=== PATIENT | female | born 1960 | race Caucasian/White ===

== ENCOUNTER 2020-02-02 06:45 | Emergency (ER) | payer MEDICAID ==
[~2020-02-02] VITALS: Ht 162.6 cm; Wt 50.0 kg
[2020-02-02] MEDS ORDERED: TETanus/Pertussis (Acell)/Diphther VAC/PF (Tdap-Adult) 0.5ml syringe IMVAC ONE (06:50)
[2020-02-02] MEDS ORDERED: LIDOcaine 1% W/epiNEPHrine 1:200,000 10ml vial IJ ONE (06:50)
[2020-02-02 07:39] LABS: BASOPHILS % (AUTO) 1.2 % (0-1); EOSINOPHILS # (AUTO) 0.1 X10'3 (0-0.9); EOSINOPHILS % (AUTO) 2.1 % (0-6); HEMATOCRIT 45.5 % (35.0-45.0); HEMOGLOBIN 15.4 g/dl (12.0-16.0); LYMPHOCYTES # (AUTO) 1.7 X10'3 (1.1-4.8); LYMPHOCYTES % (AUTO) 43.3 % (21-51); MEAN CORPUSCULAR HEMOGLOBIN 33.9 PG (27.0-31.0); MEAN CORPUSCULAR HGB CONC 33.9 g/dL (33.0-36.5); MEAN CORPUSCULAR VOLUME 100.1 FL (78-98); MEAN PLATELET VOLUME 7.6 FL (7.4-10.4); MONOCYTES # (AUTO) 0.4 X10'3 (0-0.9); MONOCYTES % (AUTO) 10.9 % (2-12); NEUTROPHILS # (AUTO) 1.6 X10'3 (1.8-7.7); NEUTROPHILS % (AUTO) 42.5 % (42-75); PLATELET COUNT 150 X10'3 (140-440); RED BLOOD COUNT 4.54 X10'6 (4.20-5.60); RED CELL DISTRIBUTION WIDTH 14.5 % (11.5-14.5); WHITE BLOOD COUNT 3.9 X10'3 (4.5-11.0)
[2020-02-02 07:42] LABS: URINE HCG NEGATIVE (NEG)
[2020-02-02 07:51] LABS: CLARITY,URINE CLEAR (Clear); COLOR,URINE STRAW (Yellow); GLUCOSE, URINE NEGATIVE (Neg); KETONES,URINE NEGATIVE (Neg); LEUKOCYTE ESTERASE ,URINE NEGATIVE (Neg); NITRITES, URINE NEGATIVE (Neg); OCCULT BLOOD,URINE TRACE-LYSED (Neg); PROTEIN,URINE NEGATIVE (Neg); UROBILINOGEN,URINE 0.2 E.U/dL (0.2-1.0)
[2020-02-02 07:53] LABS: UA COLLECTION TYPE CLN CATCH MIDSTREAM
[2020-02-02 07:56] LABS: SQUAMOUS EPITHELIAL CELL,UR FEW /LPF (FEW)
[2020-02-02 07:57] LABS: BACTERIA,URINE FEW /HPF (Neg); RBC,URINE 0-2 /HPF (0-2); WBC,URINE 0-4 /HPF (0-4)
[2020-02-02 07:58] LABS: URINE AMPHETAMINE SCREEN NEGATIVE (Neg); URINE BARBITUATE SCREEN NEGATIVE (Neg); URINE BENZODIAZEPINES SCREEN NEGATIVE (Neg); URINE CANNABINOID SCREEN NEGATIVE (Neg); URINE COCAINE SCREEN NEGATIVE (Neg); URINE METHADONE SCREEN NEGATIVE (Neg); URINE OPIATE SCREEN NEGATIVE (Neg); URINE PHENCYCLIDINE SCREEN NEGATIVE (Neg)
[2020-02-02 08:04] LABS: ALANINE AMINOTRANSFERASE 250 U/L (12-78); ALBUMIN 4.5 G/DL (3.4-5.0); ALBUMIN/GLOBULIN RATIO 1.3 (1.1-1.5); ALKALINE PHOSPHATASE 142 IU/L (46-116); ANION GAP 13 (8-16); ASPARTATE AMINO TRANSFERASE 218 U/L (10-37); BILIRUBIN,TOTAL 0.8 MG/DL (0.1-1.0); BLOOD UREA NITROGEN 7 MG/DL (7-18); BUN/CREATININE RATIO 9.7 (6.6-38.0); CALCIUM 8.9 MG/DL (8.5-10.1); CHLORIDE 110 MMOL/L (99-107); CREATININE 0.72 MG/DL (0.40-0.90); GLUCOSE 95 MG/DL (70-104); POTASSIUM 3.9 MMOL/L (3.5-5.1); SODIUM 148 MMOL/L (135-145); TOTAL CARBON DIOXIDE 25.3 MMOL/L (24-32); TOTAL PROTEIN 8.1 G/DL (6.4-8.2); eGFR 83 ML/MIN
[2020-02-02] MEDS: LORazepam 1 MG tablet PO PRN ×3 (08:15→22:37)
[2020-02-02 08:32] LABS: ETHANOL 0.302 GM/DL (0.0-0.010)
[2020-02-02] MEDS ORDERED: diphenhydrAMINE 50 mg/ml inj IM ONE (08:40)
[2020-02-02] MEDS ORDERED: LORazepam 2 mg/ml vial IM ONE (08:40)
[2020-02-02] MEDS ORDERED: haloperidol lactate 5mg/ml inj IM ONE (08:40)
--- NOTE | 2020-02-02 10:15 | NUR ---
pt escorted from room 9 in main ED to room 20 by tech and security with no incidents, immediately laid down and went back to sleep
--- NOTE | 2020-02-02 11:00 | NUR ---
PT IS ASLEEP, REGULAR BREATHING PRESENT, NO AGITATION OBSERVED
--- NOTE | 2020-02-02 12:01 | NUR ---
PT IS SLEEPING, REGULAR BREATHING PRESENT. NO AGITATION OBSERVED
--- NOTE | 2020-02-02 13:11 | NUR ---
PATIENT IS SITTING UP IN BED, EATING AND DRINKING , NO AGITATION OBSERVED
--- NOTE | 2020-02-02 14:13 | NUR ---
PT IS ASLEEP, REGULAR BREATHING OBSERVED,
--- NOTE | 2020-02-02 15:12 | NUR ---
PT IS AWAKE AND COOPERATIVE WITH REGISTRATION STAFF
--- NOTE | 2020-02-02 16:08 | NUR ---
pt is asleep, laying on her right side, regular breathing present
--- NOTE | 2020-02-02 16:55 | NUR ---
pt is supine in bed, asleep, no s/s of agitation, regular breathing present
[2020-02-02] MEDS ORDERED: nicotine 21mg patch - 24 hr TD ONE (17:10)
--- NOTE | 2020-02-02 18:06 | NUR ---
pt is supine in bed asleep, regular breathing present, will continue to monitor
--- NOTE | 2020-02-02 19:17 | NUR ---
BREAKING PRIMARY RN. PT RESTING COMFORTABLY AND NOT SHOWING ANY SIGNS OF DISTRESS OR DISCOMFORT. WILL CONTINUE TO MONITOR.
[2020-02-02] MEDS ORDERED: TRAZ-251 PO (19:53)
--- NOTE | 2020-02-02 20:10 | NUR ---
pt is supine in bed, asleep, regular breathing present
[2020-02-02] MEDS ORDERED: traZODone 50mg tablet PO SCH (21:00)
--- NOTE | 2020-02-02 21:09 | NUR ---
pt is asleep, regular breathing present
--- NOTE | 2020-02-02 22:04 | NUR ---
BREAKING PRIMARY RN. PT SLEEPING WITH NO SIGNS OF DISTRESS OR DISCOMFORT. WILL CONTINUE TO MONITOR.
--- NOTE | 2020-02-02 22:53 | NUR ---
pt woke up and req sleep, meds, she was given meds and laid back down to sleep
--- NOTE | 2020-02-02 23:47 | NUR ---
TAKING OVER PT CARE FROM PRIOR RN; SBAR RECEIVED. PT CONTINUES TO REST WITH NO SIGNS OF DISTRESS OR DISCOMFORT. WILL CONTINUE TO MONITOR.
--- NOTE | 2020-02-03 00:38 | NUR ---
PT CONTINUES TO SLEEP, CURRENTLY ON RIGHT SIDE; NO SIGNS OF DISTRESS OR DISCOMFORT. WILL CONTINUE TO MONITOR.
--- NOTE | 2020-02-03 01:19 | NUR ---
PATIENT ON RIGHT SIDE RODRIGUEZ POSITION.WE WILL CONTINUE TO MONITOR.
--- NOTE | 2020-02-03 02:32 | NUR ---
PT CONTINUES TO REST WITH NO SIGNS OF DISTRESS OR DISCOMFORT. WILL CONTINUE TO MONITOR.
--- NOTE | 2020-02-03 03:46 | NUR ---
PT CONTINUES TO REST ON LEFT SIDE. NO SIGNS OF DISTRESS OR DISCOMFORT. WILL CONTINUE TO MONITOR.
--- NOTE | 2020-02-03 04:31 | NUR ---
PT CONTINUES TO REST WITH NO SIGNS OF DISCOMFORT OR DISTRESS. WILL CONTINUE TO MONITOR.
--- NOTE | 2020-02-03 05:50 | NUR ---
The patient appears to be sleeping
[2020-02-03] MEDS: LORazepam 1 MG tablet PO PRN (06:11)
--- NOTE | 2020-02-03 07:20 | NUR ---
asleep no resp dist
[2020-02-03] MEDS ORDERED: nicotine 21mg patch - 24 hr TD ONE (08:00)
--- NOTE | 2020-02-03 08:02 | NUR ---
asleep no resp dist
--- NOTE | 2020-02-03 09:30 | NUR ---
talking to county worker, in bed resting
[2020-02-03 09:49] VITALS: BP 116/83
--- NOTE | 2020-02-03 10:16 | NUR ---
asleep no resp dist
== END 2020-02-03 10:30 | disposition home or self-care (01) ==
LOC: ER 06:46
DX: S51.812A Laceration without foreign body of left forearm, initial encounter (principal); R45.851 Suicidal ideations; F32.9 Major depressive disorder, single episode, unspecified; X58.XXXA Exposure to other specified factors, initial encounter; Y93.89 Activity, other specified; Y92.89 Other specified places as the place of occurrence of the external cause; Y99.8 Other external cause status
CPT/HCPCS: 36415; 80053; 80305; 80320; 81001; 81025; 84443; 85025; 90471; 90715; 99285

== ENCOUNTER 2020-02-05 01:33 | Emergency (ER) | payer MEDICAID ==
[~2020-02-05] VITALS: Ht 162.6 cm; Wt 55.0 kg
[~2020-02-05 01:33] MED LIST: TRAZ-251 PO
[2020-02-05 01:34] VITALS: BP 102/65
== END 2020-02-05 02:32 | disposition left against medical advice (07) ==
LOC: ER 01:33
DX: S80.211A Abrasion, right knee, initial encounter (principal); F10.229 Alcohol dependence with intoxication, unspecified; F10.239 Alcohol dependence with withdrawal, unspecified; F32.9 Major depressive disorder, single episode, unspecified; Z60.2 Problems related to living alone; Z79.899 Other long term (current) drug therapy; Y90.9 Presence of alcohol in blood, level not specified; W18.39XA Other fall on same level, initial encounter; Y93.89 Activity, other specified; Y92.89 Other specified places as the place of occurrence of the external cause; Y99.8 Other external cause status
CPT/HCPCS: 82948; 99284

== ENCOUNTER 2020-02-05 02:49 | Emergency (ER) | payer MEDICAID ==
[~2020-02-05] VITALS: Ht 162.6 cm; Wt 55.0 kg
[2020-02-05 03:30] LABS: ANION GAP 13 (8-16); BLOOD UREA NITROGEN 12 MG/DL (7-18); BUN/CREATININE RATIO 14.5 (6.6-38.0); CHLORIDE 105 MMOL/L (99-107); CREATININE 0.83 MG/DL (0.40-0.90); GLUCOSE 102 MG/DL (70-104); SODIUM 142 MMOL/L (135-145); TOTAL CARBON DIOXIDE 24.5 MMOL/L (24-32); eGFR 71 ML/MIN
[2020-02-05 05:59] VITALS: BP 108/71
== END 2020-02-05 06:00 | disposition home or self-care (01) ==
LOC: ER 02:50
DX: F10.129 Alcohol abuse with intoxication, unspecified (principal); R41.0 Disorientation, unspecified; F32.9 Major depressive disorder, single episode, unspecified; Z60.2 Problems related to living alone; Z79.899 Other long term (current) drug therapy; Y90.0 Blood alcohol level of less than 20 mg/100 ml
CPT/HCPCS: 36415; 80048; 80320; 99283

== ENCOUNTER 2020-02-17 06:34 | Emergency (ER) | payer MEDICAID ==
[~2020-02-17] VITALS: Ht 162.6 cm; Wt 50.0 kg
[2020-02-17] MEDS ORDERED: normal saline 1000ML IV soln IVB ONE (06:50)
[2020-02-17 07:27] LABS: BASOPHILS % (AUTO) 0.9 % (0-1); EOSINOPHILS # (AUTO) 0.1 X10'3 (0-0.9); EOSINOPHILS % (AUTO) 2.5 % (0-6); HEMATOCRIT 43.5 % (35.0-45.0); HEMOGLOBIN 14.9 g/dl (12.0-16.0); LYMPHOCYTES # (AUTO) 1.5 X10'3 (1.1-4.8); LYMPHOCYTES % (AUTO) 39.7 % (21-51); MEAN CORPUSCULAR HEMOGLOBIN 34.1 PG (27.0-31.0); MEAN CORPUSCULAR HGB CONC 34.3 g/dL (33.0-36.5); MEAN CORPUSCULAR VOLUME 99.4 FL (78-98); MEAN PLATELET VOLUME 7.4 FL (7.4-10.4); MONOCYTES # (AUTO) 0.3 X10'3 (0-0.9); MONOCYTES % (AUTO) 7.1 % (2-12); NEUTROPHILS # (AUTO) 1.8 X10'3 (1.8-7.7); NEUTROPHILS % (AUTO) 49.8 % (42-75); PLATELET COUNT 221 X10'3 (140-440); RED BLOOD COUNT 4.38 X10'6 (4.20-5.60); WHITE BLOOD COUNT 3.7 X10'3 (4.5-11.0)
[2020-02-17 07:43] LABS: ALANINE AMINOTRANSFERASE 170 U/L (12-78); ALBUMIN/GLOBULIN RATIO 1.2 (1.1-1.5); ALKALINE PHOSPHATASE 135 IU/L (46-116); ANION GAP 13 (8-16); ASPARTATE AMINO TRANSFERASE 102 U/L (10-37); BILIRUBIN,TOTAL 0.4 MG/DL (0.1-1.0); BLOOD UREA NITROGEN 11 MG/DL (7-18); BUN/CREATININE RATIO 18.6 (6.6-38.0); CALCIUM 8.9 MG/DL (8.5-10.1); CHLORIDE 105 MMOL/L (99-107); CREATININE 0.59 MG/DL (0.40-0.90); ETHANOL 0.258 GM/DL (0.0-0.010); GLUCOSE 83 MG/DL (70-104); POTASSIUM 3.7 MMOL/L (3.5-5.1); SODIUM 143 MMOL/L (135-145); TOTAL CARBON DIOXIDE 24.8 MMOL/L (24-32); TOTAL PROTEIN 7.4 G/DL (6.4-8.2); eGFR > 90 ML/MIN
[2020-02-17] MEDS ORDERED: gabapentin 400mg capsule PO STA (08:06)
[2020-02-17 08:12] LABS: URINE AMPHETAMINE SCREEN NEGATIVE (Neg); URINE BARBITUATE SCREEN NEGATIVE (Neg); URINE BENZODIAZEPINES SCREEN NEGATIVE (Neg); URINE CANNABINOID SCREEN NEGATIVE (Neg); URINE COCAINE SCREEN NEGATIVE (Neg); URINE METHADONE SCREEN NEGATIVE (Neg); URINE OPIATE SCREEN NEGATIVE (Neg); URINE PHENCYCLIDINE SCREEN NEGATIVE (Neg)
[2020-02-17] MEDS ORDERED: CHLO25CA10 PO (08:13)
[2020-02-17] MEDS ORDERED: GABA-534 PO (08:13)
[2020-02-17] MEDS ORDERED: ONDA4TAB6 PO (08:16)
[2020-02-17 09:18] VITALS: BP 103/67
== END 2020-02-17 09:20 | disposition home or self-care (01) ==
LOC: ER 06:35
DX: F10.20 Alcohol dependence, uncomplicated (principal); K70.10 Alcoholic hepatitis without ascites; F32.9 Major depressive disorder, single episode, unspecified; F17.200 Nicotine dependence, unspecified, uncomplicated; R10.84 Generalized abdominal pain; Z79.899 Other long term (current) drug therapy; Z60.2 Problems related to living alone; Y90.0 Blood alcohol level of less than 20 mg/100 ml
CPT/HCPCS: 36415; 80053; 80305; 80320; 85025; 99283; J7030

== ENCOUNTER 2020-02-22 02:40 | Emergency (ER) | payer MEDICAID ==
[~2020-02-22] VITALS: Ht 162.6 cm; Wt 75.0 kg
[~2020-02-22 02:40] MED LIST changes: +CHLO25CA10 PO; +GABA-534 PO; +ONDA4TAB6 PO
--- NOTE | 2020-02-22 02:45 | NUR ---
PT STRIGHT CATH FOR URINE CHRISTELLE
--- NOTE | 2020-02-22 03:10 | NUR ---
PT CHANGED INTO GREEN SCRUBS
[2020-02-22] MEDS ORDERED: CHLO25CA10 PO (03:12)
[2020-02-22] MEDS ORDERED: ONDA-103 PO (03:14)
[2020-02-22 03:16] LABS: ALANINE AMINOTRANSFERASE 106 U/L (12-78); ALBUMIN 3.6 G/DL (3.4-5.0); ALBUMIN/GLOBULIN RATIO 1.1 (1.1-1.5); ALKALINE PHOSPHATASE 95 IU/L (46-116); ANION GAP 9 (8-16); ASPARTATE AMINO TRANSFERASE 62 U/L (10-37); BILIRUBIN,TOTAL 0.4 MG/DL (0.1-1.0); BLOOD UREA NITROGEN 7 MG/DL (7-18); CALCIUM 8.6 MG/DL (8.5-10.1); CHLORIDE 109 MMOL/L (99-107); CREATININE 0.88 MG/DL (0.40-0.90); GLUCOSE 76 MG/DL (70-104); POTASSIUM 3.8 MMOL/L (3.5-5.1); SODIUM 146 MMOL/L (135-145); TOTAL CARBON DIOXIDE 28.2 MMOL/L (24-32); TOTAL PROTEIN 6.8 G/DL (6.4-8.2); eGFR 66 ML/MIN
[2020-02-22] MEDS ORDERED: GABA-534 PO (03:16)
[2020-02-22 03:17] LABS: ETHANOL 0.143 GM/DL (0.0-0.010)
[2020-02-22 03:20] LABS: ACETAMINOPHEN < 2.0 UG/ML (10-30)
[2020-02-22 03:39] LABS: URINE AMPHETAMINE SCREEN NEGATIVE (Neg); URINE BARBITUATE SCREEN NEGATIVE (Neg); URINE BENZODIAZEPINES SCREEN POSITIVE (Neg); URINE CANNABINOID SCREEN NEGATIVE (Neg); URINE COCAINE SCREEN NEGATIVE (Neg); URINE METHADONE SCREEN NEGATIVE (Neg); URINE OPIATE SCREEN NEGATIVE (Neg); URINE PHENCYCLIDINE SCREEN NEGATIVE (Neg)
--- NOTE | 2020-02-22 03:39 | NUR ---
MED REC FAXED TO PHARMACY
[2020-02-22 03:50] LABS: BASOPHILS % (AUTO) 1.2 % (0-1); EOSINOPHILS # (AUTO) 0.1 X10'3 (0-0.9); EOSINOPHILS % (AUTO) 4.3 % (0-6); HEMATOCRIT 39.3 % (35.0-45.0); HEMOGLOBIN 13.3 g/dl (12.0-16.0); LYMPHOCYTES # (AUTO) 1.5 X10'3 (1.1-4.8); LYMPHOCYTES % (AUTO) 51.1 % (21-51); MEAN CORPUSCULAR HEMOGLOBIN 34.3 PG (27.0-31.0); MEAN CORPUSCULAR HGB CONC 33.9 g/dL (33.0-36.5); MEAN PLATELET VOLUME 7.6 FL (7.4-10.4); MONOCYTES # (AUTO) 0.3 X10'3 (0-0.9); MONOCYTES % (AUTO) 9.9 % (2-12); NEUTROPHILS % (AUTO) 33.5 % (42-75); PLATELET COUNT 164 X10'3 (140-440); RED BLOOD COUNT 3.89 X10'6 (4.20-5.60); RED CELL DISTRIBUTION WIDTH 14.5 % (11.5-14.5); WHITE BLOOD COUNT 2.9 X10'3 (4.5-11.0)
[2020-02-22] MEDS ORDERED: ondansetron 4mg rapidly disintigrating tab PO PRN (03:55)
--- NOTE | 2020-02-22 05:06 | NUR ---
PACKET FAXED TO [facility]
[2020-02-22 05:44] VITALS: BP 112/71
--- NOTE | 2020-02-22 06:22 | NUR ---
patient on a 1798. Patient drank and took meds. No sure if she overdosed (Chlordiazepoxide, gabapentin, trazodone. Patient sobered and states she took her regular meds and did not OD. Patient drank a a bottle and a half of wine. 0.14 ETOH level. Packet sent. Diet ordered. Med rec completed.
[2020-02-22 06:24] LABS: TOTAL CELLS COUNTED 100
[2020-02-22 06:25] LABS: PLATELET ESTIMATE NORMAL
--- NOTE | 2020-02-22 06:40 | NUR ---
PT BELONGINGS AND CHART TAKEN TO OVERFLOW. PT WALKED BACK TO BED 24 FROM BED 8
--- NOTE | 2020-02-22 06:42 | NUR ---
Patient resting on right side. No distress observed. Continue to monitor.
--- NOTE | 2020-02-22 08:10 | NUR ---
Patient sitting up and eating. No distress observed. Continue to monitor.
--- NOTE | 2020-02-22 10:02 | NUR ---
Patient being evaluated by [facility]. Continue to monitor.
--- NOTE | 2020-02-22 10:20 | NUR ---
Patient sleeping and easily awakens to voice. Patient denies suicidal/homicidal ideation. Patient states she is not ready to go to rehab. Patient has too much stress and uses alcohol to cope. Patient okay to go home. Continue to monitor.
[2020-02-22] MEDS ORDERED: traZODone 50mg tablet PO SCH (21:00)
== END 2020-02-22 10:52 | disposition home or self-care (01) ==
LOC: ER 02:41
DX: R45.851 Suicidal ideations (principal); F10.129 Alcohol abuse with intoxication, unspecified; Z60.2 Problems related to living alone; Z79.899 Other long term (current) drug therapy; Y90.0 Blood alcohol level of less than 20 mg/100 ml
CPT/HCPCS: 36415; 80053; 80305; 80320; 80329; 85025; 93005; 99285

== ENCOUNTER 2020-02-25 21:07 | Emergency (ER) | payer MEDICAID ==
[~2020-02-25] VITALS: Ht 162.6 cm; Wt 50.0 kg
[~2020-02-25 21:07] MED LIST changes: -CHLO25CA10 PO; -GABA-534 PO; +ONDA-103 PO; -ONDA4TAB6 PO
[2020-02-25 22:53] VITALS: BP 115/77
== END 2020-02-25 22:55 | disposition home or self-care (01) ==
LOC: ER 21:07
DX: F10.129 Alcohol abuse with intoxication, unspecified (principal); F32.9 Major depressive disorder, single episode, unspecified; Z72.89 Other problems related to lifestyle; Z60.2 Problems related to living alone; Z79.899 Other long term (current) drug therapy; Y90.9 Presence of alcohol in blood, level not specified
CPT/HCPCS: 99283

== ENCOUNTER 2020-02-27 20:13 | Emergency (ER) | payer MEDICAID ==
[~2020-02-27] VITALS: Ht 162.6 cm; Wt 50.0 kg
[2020-02-27 20:22] VITALS: BP 129/73
--- NOTE | 2020-02-27 21:19 | NUR ---
Patient wishes to leave without being seen. Dr. Olmedo is aware and is unable to see the patient at this time due to the acuity of patients. Patient ambulates with a steady gait throughout ED.
== END 2020-02-27 21:35 | disposition left against medical advice (07) ==
LOC: ER 20:14
DX: F10.20 Alcohol dependence, uncomplicated (principal); Z53.21 Procedure and treatment not carried out due to patient leaving prior to being seen by health care provider; Y90.9 Presence of alcohol in blood, level not specified

== ENCOUNTER 2020-02-29 04:24 | Emergency (ER) | payer MEDICAID ==
[~2020-02-29] VITALS: Ht 162.6 cm; Wt 50.0 kg
[2020-02-29 04:28] VITALS: BP 113/68
[2020-02-29] MEDS ORDERED: gabapentin 300mg capsule PO ONE (04:40)
[2020-02-29] MEDS ORDERED: GABA300C PO (04:40)
== END 2020-02-29 04:51 | disposition home or self-care (01) ==
LOC: ER 04:24
DX: F10.129 Alcohol abuse with intoxication, unspecified (principal); F32.9 Major depressive disorder, single episode, unspecified; F41.9 Anxiety disorder, unspecified; Z79.899 Other long term (current) drug therapy; Z60.2 Problems related to living alone; Y90.9 Presence of alcohol in blood, level not specified
CPT/HCPCS: 99283

== ENCOUNTER 2020-03-12 15:51 | Emergency (ER) | payer MEDICAID ==
[~2020-03-12] VITALS: Ht 162.6 cm; Wt 50.0 kg
[~2020-03-12 15:51] MED LIST changes: +GABA300C PO
[2020-03-12] MEDS ORDERED: LORazepam 2 mg/ml vial IV ONE (16:00)
[2020-03-12] MEDS ORDERED: normal saline 1000ML IV soln IVB ONE (16:00)
[2020-03-12] MEDS ORDERED: folic acid 1mg/0.2ml inj IV ONE (16:00)
[2020-03-12] MEDS ORDERED: proCHLORperazine 10 MG/2 ml inj IV ONE (16:00)
[2020-03-12] MEDS ORDERED: thiamine 100mg/ml 2ml inj. IV ONE (16:00)
[2020-03-12 16:20] LABS: BASOPHILS % (AUTO) 1.4 % (0-1); EOSINOPHILS % (AUTO) 1.3 % (0-6); HEMATOCRIT 42.5 % (35.0-45.0); HEMOGLOBIN 14.7 g/dl (12.0-16.0); LYMPHOCYTES # (AUTO) 1.5 X10'3 (1.1-4.8); LYMPHOCYTES % (AUTO) 42.5 % (21-51); MEAN CORPUSCULAR HEMOGLOBIN 34.9 PG (27.0-31.0); MEAN CORPUSCULAR HGB CONC 34.7 g/dL (33.0-36.5); MEAN CORPUSCULAR VOLUME 100.8 FL (78-98); MEAN PLATELET VOLUME 7.5 FL (7.4-10.4); MONOCYTES # (AUTO) 0.3 X10'3 (0-0.9); MONOCYTES % (AUTO) 7.1 % (2-12); NEUTROPHILS # (AUTO) 1.7 X10'3 (1.8-7.7); NEUTROPHILS % (AUTO) 47.7 % (42-75); PLATELET COUNT 191 X10'3 (140-440); RED BLOOD COUNT 4.22 X10'6 (4.20-5.60); RED CELL DISTRIBUTION WIDTH 14.6 % (11.5-14.5); WHITE BLOOD COUNT 3.6 X10'3 (4.5-11.0)
[2020-03-12 16:30] LABS: ALANINE AMINOTRANSFERASE 123 U/L (12-78); ALBUMIN 3.6 G/DL (3.4-5.0); ALBUMIN/GLOBULIN RATIO 1.2 (1.1-1.5); ALKALINE PHOSPHATASE 115 IU/L (46-116); ANION GAP 16 (8-16); ASPARTATE AMINO TRANSFERASE 73 U/L (10-37); BILIRUBIN,TOTAL 0.5 MG/DL (0.1-1.0); BLOOD UREA NITROGEN 12 MG/DL (7-18); BUN/CREATININE RATIO 18.5 (6.6-38.0); CALCIUM 7.6 MG/DL (8.5-10.1); CHLORIDE 106 MMOL/L (99-107); CREATININE 0.65 MG/DL (0.40-0.90); ETHANOL 0.293 GM/DL (0.0-0.010); GLUCOSE 70 MG/DL (70-104); POTASSIUM 3.8 MMOL/L (3.5-5.1); SODIUM 143 MMOL/L (135-145); TOTAL CARBON DIOXIDE 21.3 MMOL/L (24-32); TOTAL PROTEIN 6.6 G/DL (6.4-8.2); eGFR > 90 ML/MIN
[2020-03-12 20:04] VITALS: BP 103/67
== END 2020-03-12 20:25 | disposition home or self-care (01) ==
LOC: ER 15:51
DX: F10.129 Alcohol abuse with intoxication, unspecified (principal); F32.9 Major depressive disorder, single episode, unspecified; Z60.2 Problems related to living alone; Z98.890 Other specified postprocedural states; Y90.0 Blood alcohol level of less than 20 mg/100 ml
CPT/HCPCS: 36415; 71045; 80053; 80320; 82948; 85025; 93005; 96361; 96374; 96375; 99285; J0780; J3411; J3490; J7030; 99284

== ENCOUNTER 2020-03-29 15:36 | Emergency (ER) | payer MEDICAID ==
[~2020-03-29] VITALS: Ht 162.6 cm; Wt 47.0 kg
[2020-03-29] MEDS ORDERED: HYDROcodone/acetaminophen 10/325mg tab PO ONE (17:00)
[2020-03-29] MEDS ORDERED: HYDR-3965 PO (17:04)
[2020-03-29 18:00] VITALS: BP 109/59
== END 2020-03-29 18:52 | disposition home or self-care (01) ==
LOC: ER 15:37
DX: S82.62XA Displaced fracture of lateral malleolus of left fibula, initial encounter for closed fracture (principal); S82.872A Displaced pilon fracture of left tibia, initial encounter for closed fracture; M25.572 Pain in left ankle and joints of left foot; M25.472 Effusion, left ankle; F32.9 Major depressive disorder, single episode, unspecified; F17.200 Nicotine dependence, unspecified, uncomplicated; Z72.89 Other problems related to lifestyle; Z60.2 Problems related to living alone; Z79.899 Other long term (current) drug therapy; W19.XXXA Unspecified fall, initial encounter; Y93.89 Activity, other specified; Y92.89 Other specified places as the place of occurrence of the external cause; Y99.8 Other external cause status
CPT/HCPCS: 29515; 73610; 99284

== ENCOUNTER 2020-04-04 20:56 | Emergency (ER) | payer MEDICAID ==
[~2020-04-04] VITALS: Ht 162.6 cm; Wt 47.7 kg
[~2020-04-04 20:56] MED LIST changes: +HYDR-3965 PO
[2020-04-04] MEDS ORDERED: HYDROcodone/acetaminophen 10/325mg tab PO ONE (21:35)
[2020-04-04] MEDS ORDERED: HYDR-3965 PO (23:58)
[2020-04-05 00:03] VITALS: BP 99/53
== END 2020-04-05 00:04 | disposition home or self-care (01) ==
LOC: ER 20:56
DX: S82.292A Other fracture of shaft of left tibia, initial encounter for closed fracture (principal); S82.492A Other fracture of shaft of left fibula, initial encounter for closed fracture; F32.9 Major depressive disorder, single episode, unspecified; F17.200 Nicotine dependence, unspecified, uncomplicated; Z72.89 Other problems related to lifestyle; Z79.899 Other long term (current) drug therapy; W18.39XA Other fall on same level, initial encounter; Y93.01 Activity, walking, marching and hiking; Y92.89 Other specified places as the place of occurrence of the external cause; Y99.8 Other external cause status
CPT/HCPCS: 73590; 99284

== ENCOUNTER 2020-05-20 00:50 | Emergency (ER) | payer MEDICAID ==
[~2020-05-20] VITALS: Ht 162.6 cm; Wt 45.5 kg
[~2020-05-20 00:50] MED LIST changes: -HYDR-3965 PO
[2020-05-20] MEDS ORDERED: thiamine 100mg tablet PO ONE (01:00)
[2020-05-20] MEDS ORDERED: normal saline 1000ML IV soln IVB ONE (01:00)
[2020-05-20] MEDS ORDERED: ondansetron/PF 4mg/2ml inj IV ONE (01:00)
[2020-05-20] MEDS ORDERED: magnesium oxide 400mg tablet PO ONE (01:00)
[2020-05-20 01:31] LABS: BASOPHILS # (AUTO) 0.1 X10'3 (0-0.2); BASOPHILS % (AUTO) 0.8 % (0-1); EOSINOPHILS # (AUTO) 0.1 X10'3 (0-0.9); EOSINOPHILS % (AUTO) 1.4 % (0-6); HEMATOCRIT 45.2 % (35.0-45.0); HEMOGLOBIN 15.7 g/dl (12.0-16.0); LYMPHOCYTES # (AUTO) 2.4 X10'3 (1.1-4.8); LYMPHOCYTES % (AUTO) 36.1 % (21-51); MEAN CORPUSCULAR HEMOGLOBIN 33.6 PG (27.0-31.0); MEAN CORPUSCULAR HGB CONC 34.7 g/dL (33.0-36.5); MEAN CORPUSCULAR VOLUME 96.9 FL (78-98); MEAN PLATELET VOLUME 7.1 FL (7.4-10.4); MONOCYTES # (AUTO) 0.4 X10'3 (0-0.9); MONOCYTES % (AUTO) 5.4 % (2-12); NEUTROPHILS # (AUTO) 3.7 X10'3 (1.8-7.7); NEUTROPHILS % (AUTO) 56.3 % (42-75); PLATELET COUNT 277 X10'3 (140-440); RED BLOOD COUNT 4.66 X10'6 (4.20-5.60); RED CELL DISTRIBUTION WIDTH 13.1 % (11.5-14.5); WHITE BLOOD COUNT 6.6 X10'3 (4.5-11.0)
[2020-05-20 01:31] LABS: CLARITY,URINE CLEAR (Clear); COLOR,URINE STRAW (Yellow); GLUCOSE, URINE NEGATIVE (Neg); KETONES,URINE NEGATIVE (Neg); LEUKOCYTE ESTERASE ,URINE NEGATIVE (Neg); NITRITES, URINE NEGATIVE (Neg); OCCULT BLOOD,URINE NEGATIVE (Neg); PH,URINE 5.5 (4.8-8.0); PROTEIN,URINE NEGATIVE (Neg); UROBILINOGEN,URINE 0.2 E.U/dL (0.2-1.0)
[2020-05-20 01:32] LABS: UA COLLECTION TYPE CLN CATCH MIDSTREAM
[2020-05-20 01:39] LABS: URINE HCG NEGATIVE (NEG)
[2020-05-20 01:45] LABS: ALANINE AMINOTRANSFERASE 60 U/L (12-78); ALBUMIN/GLOBULIN RATIO 1.1 (1.1-1.5); ALKALINE PHOSPHATASE 100 IU/L (46-116); ANION GAP 12 (8-16); ASPARTATE AMINO TRANSFERASE 31 U/L (10-37); BILIRUBIN,TOTAL 0.4 MG/DL (0.1-1.0); BLOOD UREA NITROGEN 14 MG/DL (7-18); BUN/CREATININE RATIO 22.6 (6.6-38.0); CALCIUM 8.9 MG/DL (8.5-10.1); CHLORIDE 106 MMOL/L (99-107); CREATININE 0.62 MG/DL (0.40-0.90); GLUCOSE 100 MG/DL (70-104); SODIUM 143 MMOL/L (135-145); TOTAL CARBON DIOXIDE 25.5 MMOL/L (24-32); TOTAL PROTEIN 7.7 G/DL (6.4-8.2); eGFR > 90 ML/MIN
[2020-05-20 01:54] LABS: ETHANOL 0.228 GM/DL (0.0-0.010); MAGNESIUM 2.5 MG/DL (1.5-2.4)
[2020-05-20 02:04] LABS: URINE AMPHETAMINE SCREEN NEGATIVE (Neg); URINE BARBITUATE SCREEN NEGATIVE (Neg); URINE BENZODIAZEPINES SCREEN NEGATIVE (Neg); URINE CANNABINOID SCREEN NEGATIVE (Neg); URINE COCAINE SCREEN NEGATIVE (Neg); URINE METHADONE SCREEN NEGATIVE (Neg); URINE OPIATE SCREEN NEGATIVE (Neg); URINE PHENCYCLIDINE SCREEN NEGATIVE (Neg)
[2020-05-20] MEDS ORDERED: Melatonin 3mg tablet PO ONE (02:45)
--- NOTE | 2020-05-20 02:45 | NUR ---
PT REMOVING MONITORING EQUIPMENT AND TOSSING IT ON THE GROUND. SHE STATES SHE IS ANXIOUS AND CAN'T SLEEP. ADVISED PT THAT WITH HER BLOOD ALCOHOL LEVEL BEING 3X THE LIMIT WE WILL TRY SOME MELATONIN TO HELP HER GET TO SLEEP. PT ASKED TO REMAIN IN BED DUE TO BEING A FALL RISK SECONDARY TO INTOXICATION AND ALSO DUE TO HAVING A CAST ON HER LLE. PT IS THREATENING TO LEAVE. SHE IS REMINDED THAT SHE IS ON A MENTAL HEALTH HOLD AND IS NOT ALLOWED TO LEAVE. SITTER PRESENT IN DOORWAY OF ROOM.
--- NOTE | 2020-05-20 04:00 | NUR ---
pt resting very comfortably. in no apparent distress. md aware of bp. will continue to monitor
--- NOTE | 2020-05-20 09:59 | NUR ---
PACKET FAXED TO [facility]
--- NOTE | 2020-05-20 10:10 | NUR ---
Assumed care of the patient at this time. Pt is resting on the gurney with the lights dimmed, sitter at bedside and is awaiting further orders or disposition from [facility].
--- NOTE | 2020-05-20 11:08 | NUR ---
Pt has no change in condition. Pt has a sitter nearby.
--- NOTE | 2020-05-20 12:06 | NUR ---
Pt has no change in condition. Pt ambulatory with her crutches to the restroom. Pt has no distress noted.
--- NOTE | 2020-05-20 13:05 | NUR ---
Pt's discharge to home is pending.
[2020-05-20 13:32] VITALS: BP 121/76
== END 2020-05-20 13:20 ==
LOC: ER 00:51
DX: R45.851 Suicidal ideations (principal); F10.920 Alcohol use, unspecified with intoxication, uncomplicated; F43.10 Post-traumatic stress disorder, unspecified; F32.9 Major depressive disorder, single episode, unspecified
CPT/HCPCS: 36415; 80053; 80305; 80320; 81003; 81025; 83735; 84443; 85025; 93005; 96361; 96374; 99285; J2405; J7030

== ENCOUNTER 2020-06-02 04:05 | Emergency (ER) | payer MEDICAID ==
[~2020-06-02] VITALS: Ht 162.6 cm; Wt 45.6 kg
[2020-06-02 04:11] VITALS: BP 128/107
== END 2020-06-02 04:46 | disposition home or self-care (01) ==
LOC: ER 04:06
DX: F32.9 Major depressive disorder, single episode, unspecified (principal); Z87.81 Personal history of (healed) traumatic fracture; Z79.899 Other long term (current) drug therapy; Z88.1 Allergy status to other antibiotic agents
CPT/HCPCS: 99285

== ENCOUNTER 2020-09-15 01:10 | Emergency (ER) | payer MEDICAID ==
[~2020-09-15] VITALS: Ht 162.6 cm; Wt 50.0 kg
[2020-09-15] MEDS ORDERED: diphenhydrAMINE 25mg capsule PO ONE ×2 (01:40→03:05)
[2020-09-15 01:42] LABS: BASOPHILS % (AUTO) 0.6 % (0-1); EOSINOPHILS # (AUTO) 0.1 X10'3 (0-0.9); EOSINOPHILS % (AUTO) 1.1 % (0-6); HEMATOCRIT 45.8 % (35.0-45.0); HEMOGLOBIN 15.7 g/dl (12.0-16.0); LYMPHOCYTES # (AUTO) 2.2 X10'3 (1.1-4.8); LYMPHOCYTES % (AUTO) 39.8 % (21-51); MEAN CORPUSCULAR HEMOGLOBIN 32.9 PG (27.0-31.0); MEAN CORPUSCULAR HGB CONC 34.3 g/dL (33.0-36.5); MEAN CORPUSCULAR VOLUME 96.1 FL (78-98); MEAN PLATELET VOLUME 7.3 FL (7.4-10.4); MONOCYTES # (AUTO) 0.4 X10'3 (0-0.9); MONOCYTES % (AUTO) 7.8 % (2-12); NEUTROPHILS # (AUTO) 2.8 X10'3 (1.8-7.7); NEUTROPHILS % (AUTO) 50.7 % (42-75); PLATELET COUNT 237 X10'3 (140-440); RED BLOOD COUNT 4.77 X10'6 (4.20-5.60); RED CELL DISTRIBUTION WIDTH 13.4 % (11.5-14.5); WHITE BLOOD COUNT 5.5 X10'3 (4.5-11.0)
[2020-09-15 01:56] LABS: ALANINE AMINOTRANSFERASE 82 U/L (12-78); ALBUMIN 4.1 G/DL (3.4-5.0); ALBUMIN/GLOBULIN RATIO 1.2 (1.1-1.5); ALKALINE PHOSPHATASE 105 IU/L (46-116); ANION GAP 12 (8-16); ASPARTATE AMINO TRANSFERASE 45 U/L (10-37); BILIRUBIN,TOTAL 0.7 MG/DL (0.1-1.0); BLOOD UREA NITROGEN 12 MG/DL (7-18); BUN/CREATININE RATIO 20.7 (6.6-38.0); CHLORIDE 104 MMOL/L (99-107); CREATININE 0.58 MG/DL (0.40-0.90); GLUCOSE 77 MG/DL (70-104); POTASSIUM 3.4 MMOL/L (3.5-5.1); SODIUM 141 MMOL/L (135-145); TOTAL CARBON DIOXIDE 25.1 MMOL/L (24-32); TOTAL PROTEIN 7.5 G/DL (6.4-8.2); eGFR > 90 ML/MIN
[2020-09-15 02:03] LABS: ETHANOL 0.231 GM/DL (0.0-0.010); MAGNESIUM 2.3 MG/DL (1.5-2.4)
--- NOTE | 2020-09-15 02:52 | NUR ---
pt resting comfortably, sleeping in bed.
[2020-09-15 02:57] VITALS: BP 112/84
[2020-09-15] MEDS ORDERED: metoclopramide 10mg tablet PO ONE (03:05)
== END 2020-09-15 03:29 | disposition home or self-care (01) ==
LOC: ER 01:11
DX: F10.129 Alcohol abuse with intoxication, unspecified (principal); R06.02 Shortness of breath; F32.9 Major depressive disorder, single episode, unspecified; Z72.89 Other problems related to lifestyle; Z60.2 Problems related to living alone; Z79.899 Other long term (current) drug therapy; Y90.0 Blood alcohol level of less than 20 mg/100 ml
CPT/HCPCS: 36415; 71045; 80053; 80320; 83735; 83880; 84484; 85025; 93005; 99285; Q0163; J8597

== ENCOUNTER 2020-09-17 06:43 | Emergency (ER) | payer MEDICAID ==
[~2020-09-17] VITALS: Ht 162.6 cm; Wt 50.0 kg
[2020-09-17 06:43] VITALS: BP 122/70
== END 2020-09-17 07:08 | disposition home or self-care (01) ==
LOC: ER 06:43
DX: F10.129 Alcohol abuse with intoxication, unspecified (principal); F41.9 Anxiety disorder, unspecified; F32.9 Major depressive disorder, single episode, unspecified; F17.200 Nicotine dependence, unspecified, uncomplicated; Z72.89 Other problems related to lifestyle; Z60.2 Problems related to living alone; Z79.899 Other long term (current) drug therapy; Y90.9 Presence of alcohol in blood, level not specified
CPT/HCPCS: 99283

== ENCOUNTER 2020-09-17 08:26 | Emergency (ER) | payer MEDICAID ==
[~2020-09-17] VITALS: Ht 160 cm; Wt 70.0 kg
[2020-09-17 08:43] VITALS: BP 127/72
== END 2020-09-17 09:00 | disposition home or self-care (01) ==
LOC: ER 08:26
DX: F41.9 Anxiety disorder, unspecified (principal); F10.10 Alcohol abuse, uncomplicated; F32.9 Major depressive disorder, single episode, unspecified; Z72.89 Other problems related to lifestyle; Z60.2 Problems related to living alone; Z79.899 Other long term (current) drug therapy; Y90.9 Presence of alcohol in blood, level not specified
CPT/HCPCS: 99281; 99283

== ENCOUNTER 2020-09-18 23:32 | Emergency (ER) | payer MEDICAID ==
[~2020-09-18] VITALS: Ht 162.6 cm; Wt 51.4 kg
--- NOTE | 2020-09-19 04:00 | NUR ---
pt contacted her son in [place] to come down and help her recover , pt reports she is ready to go to rehab and wants to be medically cleared for placement . pt reports she would like to attend [facility] - phone [facility] - no answer . pt then [facility]oned [facility] and spoke with " erica" who advised her to call[facility] after 0830 for appplication process .
--- NOTE | 2020-09-19 06:31 | NUR ---
pt has been up for discharge . Dr ortez wrote taht he medicaly cleared the patient for dischargean sarah palcement to [facility] . pt verbalized she will call [facility] at 0830 to start the process of recovery . venkat ho rn and tiffany Cortes aware of pt desire and plan to be discharged and taxi cabbed [facility] / or her home to await placment , pt educated how to seek out recovery as well as community resources for her recovery. pt verbalized she plans on attending the program at [facility]
[2020-09-19 07:45] VITALS: BP 132/68
[2020-09-20] MEDS ORDERED: GABA300C PO (04:32)
== END 2020-09-19 07:48 | disposition home or self-care (01) ==
LOC: ER 23:32
DX: F10.129 Alcohol abuse with intoxication, unspecified (principal); F41.9 Anxiety disorder, unspecified; F32.9 Major depressive disorder, single episode, unspecified; F17.200 Nicotine dependence, unspecified, uncomplicated; Z72.89 Other problems related to lifestyle; Z60.2 Problems related to living alone; Z88.0 Allergy status to penicillin; Z88.1 Allergy status to other antibiotic agents; Z79.899 Other long term (current) drug therapy; Y90.9 Presence of alcohol in blood, level not specified
CPT/HCPCS: 99285

== ENCOUNTER 2020-09-20 04:18 | Emergency (ER) | payer MEDICAID ==
[~2020-09-20] VITALS: Ht 162.6 cm; Wt 50.0 kg
[2020-09-20] MEDS ORDERED: LORazepam 1 MG tablet PO ONE (04:30)
[2020-09-20] MEDS ORDERED: gabapentin 300mg capsule PO SCH (04:30)
[2020-09-20] MEDS ORDERED: GABA300C PO (04:32)
[2020-09-20] MEDS ORDERED: ondansetron 4mg rapidly disintigrating tab PO ONE (04:35)
--- NOTE | 2020-09-20 05:30 | NUR ---
pt able to eat a cracker and reports some improvement in her symptoms. pt concerned about having "the shakes" again once home. Dr. Quinteros updated and reprots pt is stable to dc home and the meds given will help with her symptoms. Pt updated of this. Stable vs. Taxi called for DC ride.
[2020-09-20 05:32] VITALS: BP 129/70
== END 2020-09-20 05:33 | disposition home or self-care (01) ==
LOC: ER 04:19
DX: F10.239 Alcohol dependence with withdrawal, unspecified (principal); R11.2 Nausea with vomiting, unspecified; R44.1 Visual hallucinations; F32.9 Major depressive disorder, single episode, unspecified; Z72.89 Other problems related to lifestyle; Z87.81 Personal history of (healed) traumatic fracture; Z88.0 Allergy status to penicillin; Z88.1 Allergy status to other antibiotic agents; Z79.899 Other long term (current) drug therapy; Y90.9 Presence of alcohol in blood, level not specified
CPT/HCPCS: 99284

== ENCOUNTER 2021-12-10 18:45 | Emergency (ER) | payer MEDICAID ==
[~2021-12-10] VITALS: Ht 162.6 cm; Wt 45.0 kg
[2021-12-10 19:42] VITALS: BP 108/73
== END 2021-12-10 23:00 | disposition left against medical advice (07) ==
LOC: ER 18:45
DX: R11.0 Nausea (principal); Z53.21 Procedure and treatment not carried out due to patient leaving prior to being seen by health care provider

== ENCOUNTER 2022-05-18 01:53 | Emergency (ER) | payer MEDICAID ==
[~2022-05-18] VITALS: Ht 162.6 cm; Wt 50.0 kg
[2022-05-18] MEDS ORDERED: diphenhydrAMINE 50 mg/ml inj IV ONE (02:10)
[2022-05-18] MEDS ORDERED: normal saline 1000ml 1,000 ML IV ONE (02:10)
[2022-05-18] MEDS ORDERED: metoclopramide 5 mg/ml inj IV ONE (02:10)
[2022-05-18 02:34] LABS: BASOPHILS # (AUTO) 0.1 X10'3 (0-0.2); EOSINOPHILS # (AUTO) 0.1 X10'3 (0-0.9); EOSINOPHILS % (AUTO) 1.1 % (0-6); HEMATOCRIT 40.7 % (35.0-45.0); HEMOGLOBIN 14.5 g/dl (12.0-16.0); LYMPHOCYTES # (AUTO) 2.3 X10'3 (1.1-4.8); LYMPHOCYTES % (AUTO) 38.4 % (21-51); MEAN CORPUSCULAR HEMOGLOBIN 33.3 PG (27.0-31.0); MEAN CORPUSCULAR HGB CONC 35.6 g/dL (33.0-36.5); MEAN CORPUSCULAR VOLUME 93.6 FL (78-98); MONOCYTES # (AUTO) 0.3 X10'3 (0-0.9); MONOCYTES % (AUTO) 5.3 % (2-12); NEUTROPHILS # (AUTO) 3.2 X10'3 (1.8-7.7); NEUTROPHILS % (AUTO) 54.2 % (42-75); PLATELET COUNT 215 X10'3 (140-440); RED BLOOD COUNT 4.35 X10'6 (4.20-5.60)
[2022-05-18 02:55] LABS: ALANINE AMINOTRANSFERASE 53 U/L (12-78); ALBUMIN/GLOBULIN RATIO 1.2 (1.1-1.5); ALKALINE PHOSPHATASE 101 IU/L (46-116); ANION GAP 11 (8-16); ASPARTATE AMINO TRANSFERASE 42 U/L (10-37); BILIRUBIN,TOTAL 0.5 MG/DL (0.1-1.0); BLOOD UREA NITROGEN 15 MG/DL (7-18); BUN/CREATININE RATIO 22.7 (6.6-38.0); CALCIUM 8.5 MG/DL (8.5-10.1); CHLORIDE 106 MMOL/L (99-107); CREATININE 0.66 MG/DL (0.40-0.90); GLUCOSE 89 MG/DL (70-104); POTASSIUM 3.8 MMOL/L (3.5-5.1); SODIUM 142 MMOL/L (135-145); TOTAL CARBON DIOXIDE 25.5 MMOL/L (24-32); TOTAL PROTEIN 7.3 G/DL (6.4-8.2); eGFR > 90 ML/MIN
[2022-05-18 03:01] LABS: CREATINE KINASE 147 U/L (26-192)
--- NOTE | 2022-05-18 04:19 | NUR ---
FREDDIE increased to Level 2 r/t 2919 dx.
--- NOTE | 2022-05-18 05:51 | NUR ---
[facility] packet faxed
--- NOTE | 2022-05-18 07:10 | NUR ---
Pt awakens to speech. Stated that she is, "stressed." Denies intent to harm herself.
--- NOTE | 2022-05-18 08:03 | NUR ---
Ambulated to the bathroom with minimal assistance. Slightly unsteady gait. Denies thoughts of harming herself.
[2022-05-18 08:26] LABS: URINE AMPHETAMINE SCREEN NEGATIVE (Neg); URINE BARBITUATE SCREEN NEGATIVE (Neg); URINE BENZODIAZEPINES SCREEN NEGATIVE (Neg); URINE CANNABINOID SCREEN NEGATIVE (Neg); URINE COCAINE SCREEN NEGATIVE (Neg); URINE METHADONE SCREEN NEGATIVE (Neg); URINE OPIATE SCREEN NEGATIVE (Neg); URINE PHENCYCLIDINE SCREEN NEGATIVE (Neg)
--- NOTE | 2022-05-18 08:40 | NUR ---
Pt is eating breakfast.
[2022-05-18 10:01] VITALS: BP 96/52
[2022-05-18] MEDS ORDERED: gabapentin 400mg capsule PO STA (10:19)
[2022-05-18] MEDS ORDERED: ciprofloxacin 250mg tablet PO ONE (10:20)
[2022-05-18] MEDS ORDERED: methylPREDNISolone sod succ 125mg/2ml vial IV ONE (10:20)
[2022-05-18] MEDS ORDERED: GABA-534 PO (10:23)
--- NOTE | 2022-05-18 11:25 | NUR ---
Pt given and understands d/c instructions. IV d/c'd, catheter was intact. Ambulatory with a slow steady gait.
== END 2022-05-18 11:25 | disposition home or self-care (01) ==
LOC: ER 01:55
DX: F10.920 Alcohol use, unspecified with intoxication, uncomplicated (principal); F32.A Depression, unspecified; Z88.1 Allergy status to other antibiotic agents; Z79.899 Other long term (current) drug therapy
CPT/HCPCS: 36415; 80053; 80305; 80320; 82550; 84443; 85025; 96361; 96374; 96375; 99284; J1200; J2765; J7030

== ENCOUNTER 2022-05-19 15:17 | Emergency (ER) | payer MEDICAID ==
[~2022-05-19] VITALS: Ht 162.6 cm; Wt 44.1 kg
[~2022-05-19 15:17] MED LIST changes: +GABA-534 PO
[2022-05-19] MEDS ORDERED: LORazepam 1 MG tablet PO ONE (16:30)
[2022-05-19 16:36] VITALS: BP 115/76
[2022-05-19 16:52] LABS: BASOPHILS % (AUTO) 0.4 % (0-1); EOSINOPHILS # (AUTO) 0.1 X10'3 (0-0.9); EOSINOPHILS % (AUTO) 2.2 % (0-6); HEMATOCRIT 41.1 % (35.0-45.0); HEMOGLOBIN 14.3 g/dl (12.0-16.0); LYMPHOCYTES % (AUTO) 48.7 % (21-51); MEAN CORPUSCULAR HEMOGLOBIN 33.1 PG (27.0-31.0); MEAN CORPUSCULAR HGB CONC 34.8 g/dL (33.0-36.5); MEAN CORPUSCULAR VOLUME 95.3 FL (78-98); MEAN PLATELET VOLUME 6.9 FL (7.4-10.4); MONOCYTES # (AUTO) 0.3 X10'3 (0-0.9); MONOCYTES % (AUTO) 6.6 % (2-12); NEUTROPHILS # (AUTO) 1.7 X10'3 (1.8-7.7); NEUTROPHILS % (AUTO) 42.1 % (42-75); PLATELET COUNT 214 X10'3 (140-440); RED BLOOD COUNT 4.32 X10'6 (4.20-5.60); RED CELL DISTRIBUTION WIDTH 13.5 % (11.5-14.5)
[2022-05-19 17:09] LABS: ALANINE AMINOTRANSFERASE 53 U/L (12-78); ALBUMIN 3.9 G/DL (3.4-5.0); ALBUMIN/GLOBULIN RATIO 1.2 (1.1-1.5); ALKALINE PHOSPHATASE 102 IU/L (46-116); ANION GAP 11 (8-16); ASPARTATE AMINO TRANSFERASE 42 U/L (10-37); BILIRUBIN,TOTAL 0.6 MG/DL (0.1-1.0); BLOOD UREA NITROGEN 10 MG/DL (7-18); BUN/CREATININE RATIO 15.2 (6.6-38.0); CALCIUM 8.7 MG/DL (8.5-10.1); CHLORIDE 105 MMOL/L (99-107); CREATININE 0.66 MG/DL (0.40-0.90); ETHANOL 0.261 GM/DL (0.0-0.010); GLUCOSE 84 MG/DL (70-104); SODIUM 145 MMOL/L (135-145); TOTAL CARBON DIOXIDE 29.2 MMOL/L (24-32); TOTAL PROTEIN 7.2 G/DL (6.4-8.2); eGFR > 90 ML/MIN
[2022-05-19 17:14] LABS: ACETAMINOPHEN < 2.0 UG/ML (10-30)
[2022-05-19] MEDS ORDERED: nicotine 7mg patch - 24hr TD ONE (17:55)
[2022-05-19 18:04] LABS: URINE HCG NEGATIVE (NEG)
[2022-05-19 18:24] LABS: URINE AMPHETAMINE SCREEN NEGATIVE (Neg); URINE BARBITUATE SCREEN NEGATIVE (Neg); URINE BENZODIAZEPINES SCREEN NEGATIVE (Neg); URINE CANNABINOID SCREEN NEGATIVE (Neg); URINE COCAINE SCREEN NEGATIVE (Neg); URINE METHADONE SCREEN NEGATIVE (Neg); URINE OPIATE SCREEN NEGATIVE (Neg); URINE PHENCYCLIDINE SCREEN NEGATIVE (Neg)
== END 2022-05-19 19:40 | disposition home or self-care (01) ==
LOC: ER 15:17
DX: F10.129 Alcohol abuse with intoxication, unspecified (principal); Z20.822 Contact with and (suspected) exposure to COVID-19; F41.9 Anxiety disorder, unspecified; F32.A Depression, unspecified; Z72.89 Other problems related to lifestyle; Z60.2 Problems related to living alone; Z88.0 Allergy status to penicillin; Z88.1 Allergy status to other antibiotic agents; Z79.899 Other long term (current) drug therapy; Y90.0 Blood alcohol level of less than 20 mg/100 ml
CPT/HCPCS: 36415; 80053; 80305; 80320; 80329; 81025; 85025; 87811; 99284

== ENCOUNTER 2022-11-02 03:26 | Emergency (ER) | payer MEDICAID ==
[~2022-11-02] VITALS: Ht 162.6 cm; Wt 49.5 kg
[2022-11-02 03:47] VITALS: BP 128/69
[2022-11-02] MEDS ORDERED: acetaminophen 325mg tablet PO ONE (04:50)
[2022-11-02] MEDS ORDERED: ibuprofen 200mg tablet PO ONE (05:10)
== END 2022-11-02 05:59 | disposition home or self-care (01) ==
LOC: ER 03:26
DX: M79.602 Pain in left arm (principal); M79.89 Other specified soft tissue disorders; F32.A Depression, unspecified; F41.9 Anxiety disorder, unspecified; Z87.81 Personal history of (healed) traumatic fracture; Z88.0 Allergy status to penicillin; Z88.1 Allergy status to other antibiotic agents; Z79.899 Other long term (current) drug therapy; Z79.1 Long term (current) use of non-steroidal anti-inflammatories (NSAID); Z79.2 Long term (current) use of antibiotics
CPT/HCPCS: 73090; 99283; A4565; A6449

== ENCOUNTER 2023-09-10 19:37 | Emergency (ER) | payer MEDICAID ==
[~2023-09-10 19:37] MED LIST changes: -GABA-534 PO; +GABA-535 PO
== END 2023-09-10 20:24 | disposition left against medical advice (07) ==
LOC: ER 19:38
DX: R51.9 Headache, unspecified (principal); Z53.21 Procedure and treatment not carried out due to patient leaving prior to being seen by health care provider

== ENCOUNTER 2024-09-04 19:01 | Emergency (ER) | payer MEDICAID ==
[~2024-09-04] VITALS: Ht 162.6 cm; Wt 50.0 kg
[2024-09-04] MEDS: normal saline 1000ML IV soln IVB ONE (19:43)
[2024-09-04] MEDS: diphenhydrAMINE 50 mg/ml inj IV ONE (19:43)
[2024-09-04 19:48] LABS: BASOPHILS # (AUTO) 0.1 X10'3 (0-0.2); EOSINOPHILS # (AUTO) 0.1 X10'3 (0-0.9); EOSINOPHILS % (AUTO) 2.2 % (0-6); HEMOGLOBIN 13.7 g/dl (12.0-16.0); LYMPHOCYTES # (AUTO) 1.8 X10'3 (1.1-4.8); LYMPHOCYTES % (AUTO) 32.1 % (21-51); MEAN CORPUSCULAR HEMOGLOBIN 32.5 PG (27.0-31.0); MEAN CORPUSCULAR HGB CONC 34.3 g/dL (33.0-36.5); MEAN PLATELET VOLUME 7.3 FL (7.4-10.4); MONOCYTES # (AUTO) 0.4 X10'3 (0-0.9); MONOCYTES % (AUTO) 7.3 % (2-12); NEUTROPHILS # (AUTO) 3.3 X10'3 (1.8-7.7); NEUTROPHILS % (AUTO) 57.4 % (42-75); PLATELET COUNT 224 X10'3 (140-440); RED BLOOD COUNT 4.22 X10'6 (4.20-5.60); RED CELL DISTRIBUTION WIDTH 13.7 % (11.5-14.5); WHITE BLOOD COUNT 5.7 X10'3 (4.5-11.0)
[2024-09-04] MEDS: chlorproMAZINE 25mg/ml inj. IV ONE (20:01)
[2024-09-04 20:10] LABS: ALANINE AMINOTRANSFERASE 150 U/L (12-78); ALBUMIN 4.1 G/DL (3.4-5.0); ALBUMIN/GLOBULIN RATIO 1.2 (1.1-1.5); ALKALINE PHOSPHATASE 115 IU/L (46-116); ANION GAP 13 (8-16); ASPARTATE AMINO TRANSFERASE 107 U/L (10-37); BILIRUBIN,TOTAL 0.5 MG/DL (0.1-1.0); BLOOD UREA NITROGEN 13 MG/DL (7-18); BUN/CREATININE RATIO 21.3 (10.0-20.0); CALCIUM 9.2 MG/DL (8.5-10.1); CHLORIDE 102 MMOL/L (99-107); CREATININE 0.61 MG/DL (0.40-0.90); GLUCOSE 80 MG/DL (70-104); SODIUM 138 MMOL/L (135-145); TOTAL CARBON DIOXIDE 22.8 MMOL/L (24-32); TOTAL PROTEIN 7.5 G/DL (6.4-8.2); eCRCL 75 ML/MIN; eGFR > 90 ML/MIN
[2024-09-04 20:13] LABS: PRO BRAIN NATRIURETIC PEPTIDE 33 PG/ML (0-125)
[2024-09-04] MEDS ORDERED: ALBU18HF2 INH (21:15)
[2024-09-04 21:25] VITALS: BP 122/62; PULSE 84; RESP 18; TEMP 97.8; O2SAT 100
== END 2024-09-04 21:27 | disposition home or self-care (01) ==
LOC: ER 19:02
DX: J68.0 Bronchitis and pneumonitis due to chemicals, gases, fumes and vapors (principal); F41.9 Anxiety disorder, unspecified; F32.A Depression, unspecified; F10.90 Alcohol use, unspecified, uncomplicated; Y90.9 Presence of alcohol in blood, level not specified; Z88.0 Allergy status to penicillin; Z88.1 Allergy status to other antibiotic agents; Z79.899 Other long term (current) drug therapy; Z60.2 Problems related to living alone
CPT/HCPCS: 36415; 71045; 80053; 83880; 84484; 85025; 93005; 96361; 96374; 96375; 99285; J1200; J3230; J7030

== ENCOUNTER 2025-05-24 14:01 | Emergency (ER) | payer MEDICAID ==
[~2025-05-24] VITALS: Ht 162.6 cm; Wt 52.0 kg
[~2025-05-24 14:01] MED LIST changes: +ALBU18HF2 INH
[2025-05-24 14:10] VITALS: TEMP 98
--- NOTE | 2025-05-24 15:02 | Physician Documentation ---
History of Present Illness ~ Chief Complaint: Bloody Emesis Stated Complaint: VOMITING Time Seen by MD: 14:57 Primary Medical Doctor: Scotty CALERO [facility] This is a 64-year-old female who presents for evaluation of hematemesis. She states that shortly prior to arrival she had vomited some bright red blood. Unfortunately she can not quantify the amount of red blood but states that it was more than just blood-streaked vomit. This is happened in the past, however she has never sought medical attention for it. She denies any abdominal pain. The particular palliating or aggravating factors. She does have history of alcohol abuse, has been sober for a while and recently relapsed again. She drinks a bottle of the time. She states that she does not drink every day. Denies any history of esophageal varices. Denies use of tobacco, or illicit substances. Medication Reconciliation Allergies: Coded Allergies: Penicillins (Verified Allergy, Unknown, 05/24/25) erythromycin base (Verified Allergy, Unknown, 05/24/25) Uncoded Allergies: PCN (Allergy, Intermediate, 06/02/20) ERYTHROMYCIN (Allergy, Unknown, 02/02/20) Scheduled Albuterol Sulfate (Ventolin Hfa), 2 PUFFS INH Q4HPRN Gabapentin (Neurontin), 1 CAP PO Q8H Gabapentin (Gabapentin), 1 CAP PO as directed Ondansetron HCl (Ondansetron HCl), 1 TAB PO Q6H PRN, (Reported) Trazodone HCl (Trazodone HCl), 1 TAB PO HS, (Reported) Trazodone HCl (Trazodone HCl), 1 TAB PO HS Scheduled PRN Gabapentin (Neurontin), 1 CAP PO Q8H PRN for for anxiety/agitation Past Medical History Past Medical History: Extremity Fracture, Anxiety, Depression Past Surgical History: no surgical history Alcohol Use: Alcoholic Drug Use: none Lives with: Alone Lives In: Home Review of Systems ROS 10 point review of systems was performed and unless noted above in HPI is negative for acute process/complaint. Physical Exam Vital Signs: Temperature: 98.0, Source: Oral, Heart Rate: 91, Respiratory Rate: 20, BP: 116/73, Pulse Oximetry: 93, Weight: 52.000 Oxygen Flow Rate: 0 Physical Exam GENERAL: Awake, alert, oriented, GCS 15, no apparent distress, non-toxic appearing, answers questions, follows commands appropriately. Examined in bed 12. HEENT: Atraumatic, normocephalic, pupils equal, extraocular muscles intact, sclerae anicteric, mucus membranes moist, oropharynx is clear, no stridor. NECK: supple, full active range of motion, trachea midline, no thyromegaly, no lymphadenopathy, no JVD. CARDIOVASCULAR: regular rate/rhythm, no murmurs/gallops/rubs, Pulses are 2+ in all extremities and symmetric. Capillary refill less than 2 seconds. PULMONARY: Nonlabored, good air movement ,no respiratory distress, speaking in full sentences, clear to auscultation bilaterally, no wheezing, no ronchi, no rales, no accessory muscle use. GASTROINTESTINAL: Soft, non-tender, non-distended, normal active bowel sounds, no organomegaly, no pulsatile masses, no CVA tenderness. NEUROLOGIC: Lucid with normal mental status. Normal facial symmetry. Moves all extremities symmetrically and with purpose. No truncal ataxia. Speech is fluid without evidence of dysarthria or aphasia, no focal deficits appreciated. MUSCULOSKELETAL: There is full range of motion of all extremities. There is no joint pain or joint swelling or joint erythema. There is no muscle pain or tenderness or swelling. EXTREMITIES: warm, well-perfused, no cyanosis, no clubbing, no edema, no acute deformities. Skin: warm, dry, no rashes or lesions, no jaundice, no petechiae orpurpura. No ecchymosis. PSYCHIATRIC: Normal affect, normal insight, normal concentration. Focused exam: [] Progress Results/Orders Results/Orders Orders - GA SWENSON DO Urinalysis, Cult If Indicated (05/24/25 14:57) Ct Abdomen Pelvis (05/24/25 17:02) Hs Troponin I W Calculations (05/24/25 16:57) Drug Screen, Urine (05/24/25 14:57) Completed Orders - GA SWENSON DO Electrocardiogram (05/24/25 14:57) Cbc/Diff (05/24/25 14:57) Lipase (05/24/25 14:57) Pt Inr (05/24/25 14:57) PTT (05/24/25 14:57) MG (05/24/25 14:57) Ct Abdomen Pelvis (05/24/25 17:02) CMP (05/24/25 14:57) Hs Troponin I W Calculations (05/24/25 14:57) Ethanol (05/24/25 14:57) Prochlorperazine Inj (Compazine Inj) (05/24/25 15:00) Normal Saline 1000ml (0.9% Sodium Chlori (05/24/25 15:00) Pantoprazole 40mg Iv (Protonix 40mg Iv) (05/24/25 15:00) Pantoprazole 40mg Iv (Protonix 40mg Iv) (05/24/25 15:00) Iohexol 350mg/Ml 100ml (Omnipaque 350mg/ (05/24/25 15:36) Medications Received in ER Medications (Trade) Dose Ordered Sig/Xander Route PRN Reason Start Time Stop Time Status Last Admin Dose Admin (Compazine inj) 10 mg ONCE ONCE IM 05/24/25 15:00 05/24/25 15:01 DC 05/24/25 15:34 10 MG Sodium Chloride 1,000 ml @ 1,000 mls/hr ONCE ONCE IV 05/24/25 15:00 05/24/25 15:59 DC 05/24/25 15:33 1,000 MLS/HR (Protonix 40mg IV) 80 mg ONCE ONCE IV 05/24/25 15:00 05/24/25 15:01 DC 05/24/25 15:34 80 MG Vital Signs 05/24/25 05/24/25 05/24/25 05/24/25 14:10 14:30 15:51 17:19 Temp 98.0 Pulse 91 76 78 Resp 20 18 22 20 B/P (MAP) 116/73 97/60 (72) 94/55 (68) 108/61 (77) Pulse Ox 93 95 O2 Flow Rate 0 0 Laboratory Tests Test 05/24/25 15:07 White Blood Count 4.7 Red Blood Count 4.73 Hemoglobin 14.9 Hematocrit 44.0 Mean Corpuscular Volume 92.9 Mean Corpuscular Hemoglobin 31.4 H Mean Corpuscular Hemoglobin Concent 33.8 Red Cell Distribution Width 12.7 Platelet Count 293 Mean Platelet Volume 7.3 L Neutrophils (%) (Auto) 66.9 Lymphocytes (%) (Auto) 27.1 Monocytes (%) (Auto) 3.9 Eosinophils (%) (Auto) 1.2 Basophils (%) (Auto) 0.9 Neutrophils # (Auto) 3.2 Lymphocytes # (Auto) 1.3 Monocytes # (Auto) 0.2 Eosinophils # (Auto) 0.1 Basophils # (Auto) 0.0 CBC Comment Prothrombin Time 10.3 INR International Normalized Ratio 1.0 Activated Partial Thromboplast Time 27 Coagulation Comments Sodium Level 144 Potassium Level 4.1 Chloride Level 106 Carbon Dioxide Level 30.1 Anion Gap 8 Blood Urea Nitrogen 10 Creatinine 0.53 Estimated GFR/1.73 m2 > 90 BUN/Creatinine Ratio 18.9 Glucose Level 83 Calcium Level 8.3 L Magnesium Level 2.4 Total Bilirubin 0.6 Aspartate Amino Transf (AST/SGOT) 55 H Alanine Aminotransferase (ALT/SGPT) 76 Alkaline Phosphatase 90 Troponin I High Sensitivity 5 Total Protein 7.8 Albumin 4.0 Globulin 3.8 Albumin/Globulin Ratio 1.1 Lipase 32 Chemistry Comments Ethyl Alcohol Level 240 H EKG/XRAY/CT/US/VASC/MRI CT : CT: abdomen/pelvis With Contrast?: Yes CT comments: GI bleed protocol [place] [id number] CAT SCAN Patient: JOAO BLAND Medical Record: [id number] 1960, Age: 64 Sex: Female Location: ER Patient Status: REG ER Service Date/Time: 05/24/251701 Ordering Physician: GA SWENSON DO Exam: CT ABDOMEN PELVIS Exam: CT CT ABDOMEN PELVIS W/WO IV CONTRAST History: New onset hematemesis, history of alcohol abuse COMPARISON: CHEST,SINGLE VIEW on DOS: 09/15/20, CHEST,SINGLE VIEW on DOS: 03/12/20 Technique: Multidetector spiral CT of the abdomen and pelvis was performed from lung bases to pubic symphysis. Intravenous contrast was administered during this examination. Portal venous imaging was obtained. Axial, coronal and sagittal multiplanar reformats were performed by the technologist on a separate workstation. Radiation Dose : 1. Abdomen/Pelvis: CTDIvol 25.86 mGy, DLP 748.84 mGy*cm. Findings: The lower chest is unremarkable. Severe hepatic steatosis. No liver lesions. The gallbladder, biliary tree, pancreas, spleen, adrenal glands, and kidneys are unremarkable. No acute bowel abnormality. Normal appendix. No pneumoperitoneum, ascites, or abscess. The urinary bladder is unremarkable. Hysterectomy. No adnexal masses. Abdominal aortic dimensions are normal No lymphadenopathy. No acute or suspicious osseous lesions. IMPRESSION: No acute abdominal or pelvic finding. Severe hepatic steatosis. Radiation optimization: All CT scans at this facility use at least one of these dose optimization techniques: automated exposure control mA and/or kV adjustment per patient size (includes targeted exams where dose is matched to clinical indication) or iterative reconstruction. Electronically Signed by:ATUL PIERRE MD Date & Time: 05/24/251719 Dictated by: ATUL PIERRE MD Dictation date and time: 05/24/251719 Primary Care Provider: NO PRIMARY CARE PROVIDER cc: GA SWENSON DO ~ Medical Decision Making Additional information obtaine: old records Findings Facility Status: ED Holds, [facility] process The plan was discussed with the patient, who demonstrates clear understanding of the plan and is in agreement with the plan unless otherwise noted in the chart. All questions have been answered, all concerns were addressed unless otherwise documented. I was available throughout their ED stay for frequent reassessment and questions. Differential Diagnoses (considered and possible or likely): [Variceal bleed, gastric ulcer, gastritis, duodenal ulcer, less likely acute intra-abdominal process requiring surgical intervention.] ??Differential Diagnoses (considered and unlikely, not requiring evaluation currently): [No evidence of trauma] MDM Data Please see HPI for the following: Independent Historians and external Records Review. Historian: [Patient] Independent Historians: ?[Record review] Medication Management: [Reviewed medication list] Social History and determinants: [Reviewed] Please see the body of the note for the following: Any independent interpretations of ECG, imaging studies. All vitals signs/haemodynamics, ordered tests were independently reviewed and interpreted by myself. Nursing triage complaint and vitals reviewed, additional nursing notes were re viewed as available and I agree unless otherwise noted or documented in contradiction in the chart Vital Signs: Independently reviewed Labs: Independently interpreted Imaging: Independently interpreted Old Medical Records: Independently reviewed, see HPI for relevant summary and information Pulse Oximetry: [97%] interpreted as [normal on room air] by me [Security Trainer: [Regular Rate, Regular rhythm, no ectopy, NSR] reviewed and interpreted by me] Additionally notably showing: [Hemodynamics reviewed. The patient isn't febrile, not tachycardic, no evidence of hypotension respiratory distress. CBC is unremarkable, no leukocytosis, no anemia, normal platelets. Coagulation panel shows normal INR. Chemistry shows dehydration. Transaminitis and alcoholic pattern noted. Troponin is negative. Lipase is normal. Shockingly, her alcohol is 240, the lady is piss drunk. CT angiography GI bleed protocol was negative for acute bleed.] Tests considered but not ordered include: [Endoscopy can be done on an inpatie nt/outpatient basis] Social Determinants of Health Impact: Patient was [facility] in [facility], or [facility] [place] to healthcare due to below par ratio of patient to medical providers. [] Comorbid Conditions Impacting Present Evaluation and Care/Treatment: [Alcoholism] Management Discussions with other Healthcare Providers: [None] Treatment and Disposition Medication Management (Given or considered): [Protonix]. See EMR for details Consideration for Hospitalization/Escalation/Deescalation of Care: Admission for observation has been considered, [however the patient is able to tolerate p.o., their symptoms are controlled, they are able to rely on oral medications, and their chief complaint/diagnosis can be managed on outpatient basis.] ?ED Course:?[Patient's Colin Blachford score is 0, indicating low risk GI bleed.] ?Shared decision making:?[] Code status:?FULL Please see the full Electronic Medical Record for full details of nursing documentation, medications list, other records of complete past medical history and conditions, vital signs, laboratory studies, and any radiologic study interpretations by radiologists. Portions of this note were completed using [employer] dictation software and as a result there may exist minor errors in spelling. I have reviewed elements of past family and social history and agree as included in note. Diff Dx GI Bleed:Consideration: Include: Esophageal varicies, Esophagitis, Gastritis, Gastroenteritis, Sylvia-Jaeger syndrome, PUD Departure Disposition: HOME / SELF CARE / HOMELESS Impression: Primary Impression: Hematemesis Additional Impressions: Alcoholic intoxication Alcoholism Condition: Improved Discharge Instructions: Hematemesis Additional Instructions: Today you were evaluated for vomiting blood. Given your history of alcohol use disorder, you are at a higher risk of developing an ulcer or esophageal varices. You need to follow-up with lamination spinner specialist and undergo EGD. Please take Protonix medication as prescribed. This will decrease your risk of rebleeding. Gradually decrease your alcohol intake and eventually stop. Do not quit alcohol cold turkey as that will kill you. Continuing to consume alcohol we will continue to increase your risk of GI bleed, which can be life-threatening. Referrals: NO PRIMARY CARE PROVIDER (PCP) Prescriptions Pantoprazole Sodium (Protonix) 20 Mg Tablet.dr 1 TAB PO DAILY for 30 Days, #30 TAB 0 Refills Prov: GA SWENSON DO 05/24/25 Education Educated: Patient Educated regarding: diagnosis, treatment, prognosis, need for follow up Signature Scribe Signature: No scribe Attestation: Date: May 24, 2025 Time: 15:02 This note accurately reflects clinical decisions, work performed by myself, DO MESSI Thompson NICHOLAS M DO May 24, 2025 15:02
[2025-05-24 15:16] LABS: MEAN PLATELET VOLUME 7.3 FL (7.4-10.4); RED CELL DISTRIBUTION WIDTH 12.7 % (11.5-14.5)
--- NOTE | 2025-05-24 15:17 | ELECTROCARDIOGRAPH REPORT ---
[facility] Test Date: 2025-05-24 Test Time: 15:15:20 Pat Name: JOAO BLAND Department: [facility]- Patient ID: [facility]-[id number] Room: Gender: F [employer]: : [id number] Requested By: GA SWENOSN Order Number: [id number] Reading MD: Dr. Conner Nunez Measurements Intervals Erin Rate: 75 P: 66 SC: 172 QRS: 35 QRSD: 95 T: 67 QT: 453 QTc: 506 Interpretive Statements Sinus rhythm RSR' in V1 or V2, probably normal variant Borderline T wave abnormalities Prolonged QT interval Electronically Signed On 05-24-2025 20:39:[address] Conner Nunez Please click the below link to view image of tracing.
[2025-05-24 15:29] LABS: APTT 27 SECONDS (22-32); INR 1.0 INR
[2025-05-24 15:31] LABS: CREATININE 0.53 MG/DL (0.40-0.90); ETHANOL 240 MG/DL (<10); TOTAL CARBON DIOXIDE 30.1 MMOL/L (24-32); eCRCL 90 ML/MIN; eGFR > 90 ML/MIN
[2025-05-24] MEDS: normal saline 1000ml 1,000 ML IV ONE (15:33)
--- NOTE | 2025-05-24 17:23 | RADIOLOGY REPORT ---
Exam: CT CT ABDOMEN PELVIS W/WO IV CONTRAST History: New onset hematemesis, history of alcohol abuse COMPARISON: CHEST,SINGLE VIEW on DOS: 09/15/20, CHEST,SINGLE VIEW on DOS: 03/12/20 Technique: Multidetector spiral CT of the abdomen and pelvis was performed from lung bases to pubic symphysis. Intravenous contrast was administered during this examination. Portal venous imaging was obtained. Axial, coronal and sagittal multiplanar reformats were performed by the technologist on a separate workstation. Radiation Dose : 1. Abdomen/Pelvis: CTDIvol 25.86 mGy, DLP 748.84 mGy*cm. Findings: The lower chest is unremarkable. Severe hepatic steatosis. No liver lesions. The gallbladder, biliary tree, pancreas, spleen, adrenal glands, and kidneys are unremarkable. No acute bowel abnormality. Normal appendix. No pneumoperitoneum, ascites, or abscess. The urinary bladder is unremarkable. Hysterectomy. No adnexal masses. Abdominal aortic dimensions are normal No lymphadenopathy. No acute or suspicious osseous lesions. IMPRESSION: No acute abdominal or pelvic finding. Severe hepatic steatosis. Radiation optimization: All CT scans at this facility use at least one of these dose optimization techniques: automated exposure control mA and/or kV adjustment per patient size (includes targeted exams where dose is matched to clinical indication) or iterative reconstruction.
[2025-05-24] MEDS ORDERED: PANT20TA18 PO (17:27)
[2025-05-24 17:36] VITALS: BP 118/63; PULSE 86; RESP 20; O2SAT 96
== END 2025-05-24 17:42 | disposition home or self-care (01) ==
LOC: ER 14:02
DX: F10.229 Alcohol dependence with intoxication, unspecified (principal); K92.0 Hematemesis; F41.9 Anxiety disorder, unspecified; F32.A Depression, unspecified; Z88.0 Allergy status to penicillin; Z88.1 Allergy status to other antibiotic agents; Z79.899 Other long term (current) drug therapy; Z60.2 Problems related to living alone; Y90.8 Blood alcohol level of 240 mg/100 ml or more
CPT/HCPCS: 36415; 74178; 80053; 80320; 83690; 83735; 84484; 85025; 85610; 85730; 93005; 96361; 96372; 96374; 99285; J0780; J2470; J7030; Q9967